=== PATIENT | female | born 1960 | race Caucasian/White ===

== ENCOUNTER → 2016-08-05 | Outpatient (CLI) | payer OTHER ==
[~2016-08-05] VITALS: Ht 165.1 cm; Wt 53.1 kg
[~2016-08-05] MED LIST: ARIP1TAB5 PO; BUDE3CAP PO; CARV3.12 PO; CIPR500T2 PO; CREON6 PO; DO NOT ADM ANY ANTICOAGULANT DRUGS XX PRN; FERR325T72 PO; FLUMAZENIL 0.5 MG/5 ML VIAL IV PRN; FLUTI110I INH; INSULIN HUMAN REGULAR 1,000 UNITS/10 ML VIAL SQ PRN; L-MECAP2 PO; LACTATED RINGER'S 1000 ML IV SCH; LEXA20TA PO; LEXA5TAB PO; METOPROLOL TARTRATE 25 MG TAB PO PRN; METR500T10 PO; MIDAZOLAM HCL 2 MG/2 ML VIAL ONE; NALOXONE HCL 0.4 MG/ML AMP IV PRN; OXYB5TAB10 PO; PANT40TA3 PO; PROPOFOL 200 MG/20 ML AMP IV ONE; REGL5TAB PO; SODIUM CHLORID 0.9% 500 ML IV SCH; TIOT12.9 INH; TRAM50TA PO; TRAZ100T4 PO; TRET0.1G10 TOPICAL; TRIM300C19 PO; VENTAER INH; [UNRECOGNIZED DRUG - CODE]
[2016-08-05 08:45] VITALS: BP 125/80; PULSE 89; RESP 20; TEMP 98.1; O2SAT 100
--- NOTE | 2016-08-05 10:18 | MR ---
cc: LINDEN DUNCAN DATE 08/05/2016 DATE OF 1960 PROCEDURE Upper gastrointestinal endoscopy with biopsy. ENDOSCOPIST Linden Duncan MD MEDICATIONS Propofol administered by anesthesia. INSTRUMENT Pentax upper scope INDICATION This is a 56-year-old lady who has chronic pancreatitis. The patient had suspected jaundice. She had a stent placed two months ago and she dropped her hemoglobin significantly in the last few days with black stool and needs evaluation of her upper GI tract and evaluation of the stent position. PROCEDURE After informing the patient of procedure and complication, consent was signed. The patient was placed on her abdomen in a prone position. The scope was placed in the mouth advanced under video guidance to the second portion of the duodenum. The scope drawn back to the stomach. Retroflexion was performed, biopsy from the antrum and lesser curve, then the scope drawn back without any immediate complication. FINDINGS 1. Esophagus, normal. 2. Stomach, severe hemorrhagic gastritis. Biopsy was done. 3. Duodenum, normal except a stent is in good position with good draining of bile. No active bleeding. RECOMMENDATIONS 1. No NSAIDs. 2. Protonix 40 mg daily. 3. Follow-up biopsy. 4. Return to clinic in 2-3 weeks. 5. CBC as an outpatient in one week. 6. Liver function test in one week. MD MICHEAL Frias/ADRIAN /10:09 AM /10:14 AM
[2016-08-05 11:07] VITALS: BP 104/67; PULSE 72; RESP 20; TEMP 97.9; O2SAT 100
== END ==
LOC: HSDC 07:56
PROVIDERS: ATTEND Hospitalist
DX: K29.51 Unspecified chronic gastritis with bleeding (principal); K86.1 Other chronic pancreatitis
CPT/HCPCS: 00740; 43239; 88305; 88312; J2250; J3010

== ENCOUNTER → 2016-12-14 | Outpatient (CLI) | payer OTHER ==
[~2016-12-14] VITALS: Ht 165.1 cm; Wt 56.9 kg
[~2016-12-14] MED LIST changes: +*MEPERIDINE 25 MG INJ VIAL PERIprocedural Use ONLY ONE; -ARIP1TAB5 PO; -CARV3.12 PO; +CHLORHEXIDINE GLUCONATE 2 % 1 PACK (2 CLOTHS) TOPICAL PRN; -CIPR500T2 PO; -CREON6 PO; +DO NOT ADM ANY ANTICOAGULANT DRUGS PRN; -DO NOT ADM ANY ANTICOAGULANT DRUGS XX PRN; -FLUTI110I INH; +IOHEXOL 300 MG/ML 100 ML BTL (for Rad CT) OTHER ONE; +LACTATED RINGER'S 1000 ML IV PRN; -LACTATED RINGER'S 1000 ML IV SCH; -LEXA20TA PO; -METR500T10 PO; +ONDANSETRON HCL 4 MG/2 ML VIAL IV PUSH ONE; +POVIDONE IODINE 5% (ANTISEPSIS KIT) 4 APPLICATIONS EACH NARE PRN; -REGL5TAB PO; +SODIUM CHLORID 0.9% 500 ML IV PRN; -SODIUM CHLORID 0.9% 500 ML IV SCH; -TRET0.1G10 TOPICAL; -TRIM300C19 PO; -[UNRECOGNIZED DRUG - CODE]
[2016-12-14 08:40] VITALS: BP 122/87; PULSE 97; RESP 18; TEMP 98.4; O2SAT 100
--- NOTE | 2016-12-14 12:42 | RADRPT ---
EXAM DATE/TIME: 12/14/2016 11:25 [place] COMPARISON: No previous studies available for comparison. INDICATIONS : Obstruction. FLUORO TIME: 1.58 minutes IMAGE COUNT: 4 CONTRAST: Instilled by Ordering Physician MEDICAL HISTORY : Pancreatitis. Gastroesophageal reflux disease. Hypertension. SURGICAL HISTORY : Hysterectomy. ENCOUNTER: Initial ACUITY: 1 day PAIN SCORE: Non-responsive. LOCATION: Right upper quadrant FINDINGS: An ERCP was performed by the ordering physician. The images demonstrate no evidence of common duct stone. The duct is of normal caliber. CONCLUSION: ERCP as above. Josh Funk MD on December 14, 2016 at 12:39 Board Certified Radiologist. This report was verified electronically.
[2016-12-14 12:56] VITALS: BP 130/89; PULSE 89; RESP 16; O2SAT 98
--- NOTE | 2016-12-14 13:36 | MR ---
cc: MALICK BAUER M.D. DATE 12/14/2016 DATE OF 1960 PROCEDURE Upper gastrointestinal endoscopy with stent removal and ERCP with balloon sweep of the duct. INDICATION This is a 56-year-old lady who has chronic pancreatitis, elevated liver function test. PROCEDURE After informing the patient about the procedure and complication, consent was signed. The patient was placed on her abdomen after intubation and sedation by anesthesia. The scope was placed in the mouth, advanced under video guidance to the second portion of the duodenum. The ampulla was identified. There was a stent coming from the ampulla. This was removed by a snare. After that, the scope was placed in the mouth, advanced under video guidance to the second portion of the duodenum. The ampulla was identified and cannulation was performed. Injection showed mildly dilated pancreatic duct consistent with her chronic pancreatitis. Cholangiogram showed questionable filling defect could be an air bubble sweeping the duct with balloon 12 mm revealing no stones and end of case occluded cholangiogram was negative for any filling defect with good emptying of the duct spontaneously. No new stent was placed. FINDINGS 1. Normal EGD at this time. 2. Pancreatic duct mildly dilated 3. Common bile duct normal RECOMMENDATIONS 1. N.p.o. for 24 hours except ice chips, advance slowly. 2. LFTs with lipase in one week. 3. Return to clinic in two weeks. MD MICHEAL Frias/ADRIAN /11:43 AM /1:32 PM
== END ==
LOC: HEND 07:58
PROVIDERS: ATTEND Hospitalist
DX: K86.1 Other chronic pancreatitis (principal); R94.5 Abnormal results of liver function studies
CPT/HCPCS: 00740; 43275; 74330; C1769; J2175; J2250; J2405; J3010; J7120; Q9967

== ENCOUNTER → 2017-11-10 | Day surgery (SDC) | payer OTHER ==
[~2017-11-10] VITALS: Ht 165.1 cm; Wt 57.0 kg
[~2017-11-10] MED LIST changes: -*MEPERIDINE 25 MG INJ VIAL PERIprocedural Use ONLY ONE; +CREON6 PO; +CYCLOPENTOLATE HCL 1% OPHT SOLN 2 ML BTL ONE; -DO NOT ADM ANY ANTICOAGULANT DRUGS PRN; +DOXE50CA3 PO; +ESTR0.5T PO; +FENO145T2 PO; -FLUMAZENIL 0.5 MG/5 ML VIAL IV PRN; +FLURBIPROFEN 0.03% OPHT SOLN 2.5 ML BTL ONE; +FLUTI44I INH; +HYDR4CRE2 TOPICAL; -INSULIN HUMAN REGULAR 1,000 UNITS/10 ML VIAL SQ PRN; -IOHEXOL 300 MG/ML 100 ML BTL (for Rad CT) OTHER ONE; +LIDOCAINE HCL 1% PF 30 ML VIAL ONE; +LIDOCAINE HCL 2% JELLY 5 ML SYRINGE ONE; +LIDOCAINE HCL 2% JELLY 5 ML SYRINGE TOPICAL ONE; +MECAP PO; +METO5TAB PO; -NALOXONE HCL 0.4 MG/ML AMP IV PRN; -ONDANSETRON HCL 4 MG/2 ML VIAL IV PUSH ONE; -OXYB5TAB10 PO; +OXYB5TAB8 PO; +OXYC1CAP PO; +PHENYLEPHRINE HCL 10% OPTH SOLN 5 ML BTL ONE; +PROPARACAINE HCL 0.5% OPHT SOLN 15 ML BTL ONE; +PROPARACAINE HCL 0.5% OPHT SOLN 15 ML BTL RIGHT EYE ONE; -PROPOFOL 200 MG/20 ML AMP IV ONE; +SPIRCAP INH; +TOBRAMYCIN/DEXAMETHASONE OPTH OINT 3.5 GM TUBE ONE; +TRAZ100T10 PO; -TRAZ100T4 PO; +TROPICAMIDE 1% OPHT SOLN 15 ML BTL ONE
[2017-11-10] MEDS: CYCLOPENTOLATE HCL 1% OPHT SOLN 2 ML BTL RIGHT EYE SCH ×4 (06:40→06:55)
[2017-11-10] MEDS: FLURBIPROFEN 0.03% OPHT SOLN 2.5 ML BTL RIGHT EYE SCH ×4 (06:40→06:55)
[2017-11-10] MEDS: PHENYLEPHRINE HCL 10% OPTH SOLN 5 ML BTL RIGHT EYE SCH ×4 (06:40→06:55)
[2017-11-10] MEDS: TROPICAMIDE 1% OPHT SOLN 15 ML BTL RIGHT EYE SCH ×4 (06:40→06:55)
[2017-11-10 08:16] VITALS: TEMP 98.3
[2017-11-10 08:40] VITALS: BP 112/68; PULSE 88; RESP 16; O2SAT 96
--- NOTE | 2017-11-10 10:07 | MP ---
cc: Reinaldo Hand MD DATE OF OPERATION: 11/10/2017 [facility] # [id number] PREOPERATIVE DIAGNOSIS: Visually significant cataract, right eye. POSTOPERATIVE DIAGNOSIS: Visually significant cataract, right eye. OPERATION: Phacoemulsification with posterior chamber lens implantation, right eye. SURGEON: Reinaldo Hand MD ANESTHESIA: Topical with MAC. COMPLICATIONS: None. PROCEDURE: After informed consent was obtained, the patient was brought into the operative suite and placed on appropriate monitors by the Anesthesia Service. The patient had been given dilating drops and topical lidocaine gel in the holding area. The patient's operative eye was then prepped and draped in the usual sterile fashion. A wire lid speculum was placed. Further 2% lidocaine was then dropped on the cornea prior to beginning the procedure. A paracentesis incision was made in the peripheral cornea with a 1 mm jazmín keratome. The anterior chamber was filled with viscoelastic. The anterior chamber was then entered through a stepped, clear corneal incision using a sharp 3 mm jazmín keratome. A circular tear capsulorrhexis was then made with a bent needle cystitome. Following hydrodissection of the lens nucleus with balance saline, phaco-emulsification of the nucleus was performed using a modified chopping technique. The remaining cortex was removed with irrigation/aspiration. The prior two procedures were both performed using the handpieces of the [employer] phaco unit. The capsular bag was then filled with viscoelastic. The intraocular lens was then injected into the capsular bag and positioned. The type of intraocular lens and its power can be found elsewhere in this chart. The remaining viscoelastic was then removed from the anterior chamber with the IA handpiece. The anterior chamber was reformed with balanced saline. The wound was then closed securely with stromal hydration. It was found to be watertight to an intraocular pressure of at least 30 mmHg by palpation. A small amount of balanced salt solution was then removed through the paracentesis site and the intraocular pressure at the end of the case was approximately 20 by palpation. All drapes were then removed. TobraDex ointment was then placed in the eye, which was closed beneath a semi-pressure patch dressing. The patient tolerated this procedure well and left the operating room awake and alert. The patient is to follow-up in my office in the morning. Reinaldo MD JAYRO Gauthier , 09:57 AM , 10:05 AM
== END | disposition home or self-care (01) ==
LOC: PHSDC 06:08
PROVIDERS: ATTEND Optometrist Occupational Vision
DX: H25.811 Combined forms of age-related cataract, right eye (principal)
CPT/HCPCS: 00142; 66984; J2250; J7040; V2632